=== PATIENT | male | born 1955 | race Caucasian/White ===

== ENCOUNTER → 2018-08-15 09:36 | Outpatient (CLI) | payer OTHER, SELFPAY ==
[2013-07-28 09:21] VITALS: BMI 24.5
[2018-08-15 12:55] LABS: Anion Gap 5 (5-15); BUN 15 mg/dL (7-18); BUN/Creat Ratio 18.4 RATIO (10-20); Calcium,Total 8.6 mg/dL (8.5-10.1); Chloride 107 mmol/L (98-107); Cholesterol 157 mg/dL (200); Creatinine, Serum 0.82 mg/dL (0.70-1.30); EST Glomerular Filtration Rate 101 mL/min (>60); Est Glom Filt Rate - Afr Amer 122 mL/min (>60); Glucose 92 mg/dL (74-106); High Density Lipoprotein 61 mg/dL; PSA,Total - Annual Screen 1.04 ng/mL (0.00-4.00); Potassium 4.1 mmol/L (3.5-5.1); Sodium Level 139 mmol/L (136-145); Triglycerides 50 mg/dL; Very Low Density Lipoprotein 10 mg/dL (5-40)
== END ==
PROVIDERS: Visit Provider Family Medicine
DX: G25.0 Essential tremor (principal); Z13.220 Encounter for screening for lipoid disorders; Z12.5 Encounter for screening for malignant neoplasm of prostate
CPT/HCPCS: 36415; 80048; 80061; 84153; G0103

== ENCOUNTER → 2020-04-05 15:24 | Outpatient (CLI) | payer OTHER, SELFPAY ==
[2013-07-28 09:21] VITALS: BMI 24.5
[2020-04-05 18:41] LABS: T4 Free Direct 1.13 ng/dL (0.76-1.46); Thyroid Stim Hormone (TSH) 1.47 uIU/mL (0.358-3.74)
== END ==
PROVIDERS: PCP Family Medicine; Referring Provider Family Medicine; Visit Provider Family Medicine
DX: E04.1 Nontoxic single thyroid nodule (principal)
CPT/HCPCS: 36415; 84439; 84443

== ENCOUNTER → 2020-04-15 08:03 | Outpatient (CLI) | payer OTHER, SELFPAY ==
--- NOTE | 2020-04-15 08:06 | US_ITS ---
STUDY: THYROID ULTRASOUND REASON FOR EXAM: Male, 64 years old. NODULE FELT BY DOCTOR TECHNIQUE: Ultrasound evaluation of the thyroid was performed with real-time and static rodriguez-scale imaging. COMPARISON: None. FINDINGS: RIGHT LOBE: The right lobe of the thyroid gland measures 5.3 x 1.7 x 1.7 cm. There is a homogeneous echotexture. There are no demonstrated solid, cystic or complex lesions. LEFT LOBE: The left lobe of the thyroid gland measures 5.3 x 1.8 x 1.4 cm. There is a homogeneous echotexture. There are no demonstrated solid, cystic or complex lesions. ISTHMUS: The isthmus measures 2 mm . The regional lymph nodes are normal. US/Thyroid IMPRESSION: Normal ultrasound examination of the thyroid. Electronically Signed: Chiki Isaacs MD at 20:30 EDT , Service support ,
== END ==
PROVIDERS: PCP Family Medicine; Referring Provider Family Medicine; Visit Provider Family Medicine
DX: E04.1 Nontoxic single thyroid nodule (principal)
CPT/HCPCS: 76536

== ENCOUNTER → 2022-11-06 | Outpatient (CLI) | payer OTHER, SELFPAY ==
[2022-11-06 15:37] LABS: Absolute Lymphocyte Count 1.66 X10^3/uL (0.83-4.51); Absolute Neutrophil Count 5.3 X10^3/uL (2.0-7.7); Basophil# 0.04 X10^3/uL; Basophil% 0.5 % (0-1); Eosinophil# 0.19 X10^3/uL; Eosinophils% 2.5 % (0-5); Hematocrit 45.1 % (40-54); Hemoglobin 14.4 g/dL (13.0-16.5); Lymphocyte # 1.66 X10^3/ul (0.83-4.51); Lymphocyte % 21.4 % (19-41); Mean Corp Hgb Conc 31.9 g/dL (32-36); Mean Corpuscular Hgb 30.8 pg (27.0-32.0); Mean Corpuscular Volume 96.6 fL (80-94); Mean Platelet Vol. 10.5 fl (6.2-12.0); Monocyte# 0.55 X10^3/uL; Monocyte% 7.1 % (0-10); NRBC Flagged by Analyzer 0 % (0-5); Neutrophil # 5.28 X10^3/uL (2.7-7.7); Neutrophil % 68.2 % (47-70); Platelet Count 313 K/mm3 (150-450); RBC Distribution Width CV 12.8 % (11.6-14.6); RBC Distribution Width SD 45.5 fl (35.1-43.9); Red Blood Count 4.67 M/mm3 (4.6-6.2); White Blood Count 7.7 K/mm3 (4.4-11.0)
[2022-11-06 16:03] LABS: ALB/GLOB Ratio 1.4 RATIO (0.9-2.4); AST(SGOT) 30 U/L (15-37); Alanine Aminotransfer ALT/SGPT 35 U/L (16-61); Albumin, Serum 3.9 g/dL (3.2-5.0); Alkaline Phosphatase 71 U/L (45-117); Anion Gap 3 (5-15); BUN 16 mg/dL (7-18); BUN/Creat Ratio 24.7 RATIO (10-20); Chloride 106 mmol/L (98-107); Cholesterol 169 mg/dL (200); Creatinine, Serum 0.65 mg/dL (0.70-1.30); EST Glomerular Filtration Rate 130 mL/min (>60); Est Glom Filt Rate - Afr Amer 158 mL/min (>60); Globulin 2.7 g/dL (2.2-4.2); Glucose 93 mg/dL (74-106); High Density Lipoprotein 72 mg/dL; PSA,Total - Annual Screen 1.66 ng/mL (0.00-4.00); Potassium 4.2 mmol/L (3.5-5.1); Protein, Total 6.6 g/dL (6.4-8.2); Sodium Level 139 mmol/L (136-145); Thyroid Stim Hormone (TSH) 2.13 uIU/mL (0.358-3.74); Triglycerides 113 mg/dL; Very Low Density Lipoprotein 23 mg/dL (5-40)
== END | disposition home or self-care (01) ==
LOC: MFPLAB 11:40
PROVIDERS: PCP Family Medicine; Visit Provider Family Medicine
DX: Z00.00 Encounter for general adult medical examination without abnormal findings (principal); Z12.5 Encounter for screening for malignant neoplasm of prostate
CPT/HCPCS: 36415; 80053; 80061; 84153; 84443; 85025; G0103

== ENCOUNTER 2023-05-09 19:50 | Observation (INO) | payer OTHER, SELFPAY ==
[2023-05-09 19:52] VITALS: BP 138/88; PULSE 50; RESP 16; TEMP 36.1; O2SAT 99; BMI 26.0
--- NOTE | 2023-05-09 19:58 | CT_ITS ---
We are attempting to reach an attending provider to discuss findings. An addendum with communication details will be sent when the communication is complete. INDICATION: Neuro deficit, acute, stroke suspected EXAMINATION: CT BRAIN - CT Head Stroke Protocol W/O Contrast Injection TECHNIQUE: Multiple axial images were obtained of the head without intravenous contrast. A radiation dose optimization technique was used for this scan. IV Contrast dosage and agent: None. COMPARISON: None FINDINGS: BRAIN PARENCHYMA: No intra- or extra-axial hemorrhage. No evidence of acute infarct. No intracranial mass or mass effect. There is preservation of the rodriguez/white matter interface. Posterior fossa structures are unremarkable. Probably left basal ganglia mineralization. No dense MCA sign. CSF SPACES: Appropriate for age. No hydrocephalus. Basal cisterns are patent. CALVARIUM, SKULL BASE, PARANASAL SINUSES AND MASTOID AIR CELLS: Right maxillary sinus mucous retention cyst versus polyp. No discrete lytic or blastic abnormalities. ORBITS: Both globes, extraocular muscles, optic nerves and retrobulbar fat appear unremarkable. ASPECTS Score for Acute Strokes: 10 CT/STROKE Brain/Head without Cont IMPRESSION: No acute intracranial hemorrhage or definite focal ischemia by CT. Electronically Signed: Brandon Cooley MD at 20:13 EDT ,
--- NOTE | 2023-05-09 19:58 | EKG12_ITS ---
Test Reason : STROKE Blood Pressure : / mmHG Vent. Rate : 054 BPM Atrial Rate : 054 BPM P-R Int : 170 ms QRS Dur : 158 ms QT Int : 458 ms P-R-T Axes : 063 003 022 degrees QTc Int : 434 ms Sinus bradycardia Right bundle branch block Abnormal ECG Confirmed by PADMINI GALINDO, LAYTON ([id number]), video tape editor PRESTON ZACARIAS ([id number]) on 05/11/2023 11:56:58 AM Referred By: Confirmed By:LAYTON WASHINGTON MD
--- NOTE | 2023-05-09 19:59 | CT_ITS ---
INDICATION: Neuro deficit, acute, stroke suspected EXAMINATION: CTA head and neck with contrast. TECHNIQUE: Noncontrast axial images were obtained of the brain. Subsequently, routine carotid CT angiogram protocol was performed without and with IV contrast. In addition, images were obtained of the [place]. NASCET criteria using the distal ICAs for comparison were used for evaluation of stenoses. Maximum intensity projection reconstructions were reviewed. A radiation dose optimization technique was used for this scan. IV Contrast dosage and agent: 100 cc [id number] COMPARISON: None. FINDINGS: --CTA NECK: AORTIC ARCH AND BRANCHES: Normal anatomy, patent. Minimal atherosclerosis at the aortic arch. RIGHT CCA: No occlusion, significant stenosis or dissection. RIGHT ICA: No occlusion, significant stenosis or dissection. LEFT CCA: No occlusion, significant stenosis or dissection. LEFT ICA: No occlusion, significant stenosis or dissection. RIGHT VERTEBRAL ARTERY: No occlusion, significant stenosis or dissection. LEFT VERTEBRAL ARTERY: No occlusion, significant stenosis or dissection. NECK SOFT TISSUES: No significant abnormality. There are some scattered cervical nodes bilaterally which do not meet pathologic size criteria. Mild cervical spine degenerative change with discal narrowing C4-C6. Slight retrolisthesis of C4 on C5 and C5 on C6 which does contribute some bilateral bony foraminal narrowing and spinal canal narrowing. --CTA HEAD: --Anterior circulation: ICAs: No significant stenosis at the intracranial/visualized segments. ACAs: No significant stenosis at the visualized segments. ACOM: Present. MCAs: No significant stenosis at the visualized segments. --Posterior circulation: PCOMs: Not well seen. 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 No significant stenosis at the visualized segments. BASILAR ARTERY: No significant stenosis. VERTEBRAL ARTERIES: No significant stenosis at the intradural/visualized segments. No evidence of intracranial aneurysm or vascular malformation. IMPRESSION No hemodynamically significant ICA stenosis. No significant carotid atherosclerotic disease. No large vessel occlusion. No intracranial stenosis or aneurysmal dilatation. D/W Dr. Ross CampbellBLudwig : The above Results were Read Back by Brandon Cooley MD to Devyn Hawkins MD, and understanding confirmed on 05/09/2023 20:35:51 (ET). Electronically Signed: Brandon Cooley MD at 20:37 EDT , CT/STROKE CTA Head AND Neck W/Con IMPRESSION: undefined
--- NOTE | 2023-05-09 19:59 | ED.VIS.STROK ---
HPI History of Present Illness Chief Complaint: Headache Detail of Chief Complaint: Headache with problems speaking Informant: patient and spouse/S.O. 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 who presents because of abrupt onset of headache with trouble speaking this evening. He had problems with fluency. This started at 1914. There is no family history of subarachnoid hemorrhage or cerebral aneurysm. On Wednesday while at work he had trouble reading things for approximately 1 and 1 hour. He denies history of hypertension, hypercholesterolemia or smoking. He is headache is occipital. He denies problems with balance or coordination. He denies ringing's ears or decreased hearing. He denies double vision, blurred vision or loss of vision. He denies neck pain. He denies paresthesia, anesthesia or motor his upper or lower extremity. Prior similar symptoms: No Recent Illness/Hospitalization: No PFSH PFSH Medical History (Updated 05/09/23 @ 20:[address] Devyn Hawkins MD) ADD (attention deficit disorder) Essential tremor Medical History no medical history no medical history Home Medications dextroamphetamine-amphetamine 10 mg tablet 1 tab PO PRN PRN attention 07/28/13 [History Last Taken Unknown] oxycodone-acetaminophen 5 mg-325 mg tablet 1 tab PO Q4H PRN PRN Pain ##30 07/28/13 [Rx Last Taken Unknown] propranolol 20 mg tablet 20 mg PO BID PRN PRN temor 07/28/13 [History Last Taken Unknown] Allergy/AdvReac Type Severity Reaction Status Date / Time ibuprofen Allergy Other Verified 05/09/23 19:55 oxycodone [Oxycodone] AdvReac Nausea Verified 05/09/23 19:55 Social History (Updated 05/09/23 @ 20:[address] Devyn Hawkins MD) household members: spouse Smoking Status: Never smoker ROS ROS ED Constitutional Constitutional ED: Denies chills, fever(s) or subjective Eyes Eyes: Denies blurry vision, change in vision or diplopia ENT ENT ED: Denies ear pain, rhinorrhea or sore throat Cardiovascular Cardiovascular: Denies chest pain, palpitations, paroxysmal nocturnal dyspnea or racing heartbeat Respiratory/Chest Respiratory/Chest: Denies cough, dyspnea, dyspnea on exertion or paroxysmal nocturnal dyspnea Gastrointestinal Gastrointestinal: Reports nausea; Denies abdominal pain, constipation, diarrhea, melena or vomiting Genitourinary Genitourinary ED: Denies dysuria, hematuria or urinary frequency Musculoskeletal Musculoskeletal: Denies arthralgias, back pain, myalgias or neck pain Integumentary Denies rash Neurologic Neurologic: Reports headache(s); Denies paresthesias or weakness Hematologic/Lymphatic Hematologic/Lymphatic: Denies easy bleeding or easy bruising EXAM Physical Exam Const Vital Signs: 05/09/23 19:52 05/09/23 20:13 05/09/23 20:28 Temperature 96.9 F L Temperature Source Temporal Pulse Rate 50 L 55 L Respiratory Rate 16 19 H Blood Pressure 138/88 H 118/83 H Blood Pressure Mean 104 94 Pulse Ox 99 97 Oxygen Delivery Method Room Air Room Air Positive well nourished and well developed General Appearance ED: well developed and NAD HEENT Reports moist mucous membranes Nose: other Other Details: Nares unremarkable. Posterior pharynx unremarkable. There is no deviation with protrusion. Eyes PERRL and EOMs intact bilaterally Eyes Narrative: There is no nystagmus. There is no visual field cut. General Eye ED: Negative for pale conjunctiva or scleral icterus Neck no lymphadenopathy, supple and no JVD Neck Narrative: There is no meningeal findings. Resp normal respiratory effort and clear to auscultation bilaterally Cardio no murmurs Rate: bradycardia Rhythm: regular rhythm Heart Sounds: S1 normal and S2 normal GI normal to inspection, nondistended, normoactive bowel sounds, soft to palpation, non-tender, non-distended and no masses Back/Spine no CVA tenderness Cervical Spine: Negative for cervical spine tenderness Thoracic Spine / Upper Back: Negative for thoracic spinal tenderness Lumbar Spine / Lower Back: Negative for lumbar spinal tenderness Extremity normal to inspection Neuro oriented x3, CN's II-XII intact bilaterally and no sensory deficits noted Beto Coma Scale: document GCS findings Spontaneous Obeys Commands Oriented 15 Sensorium / Orientation: alert Speech: Negative for speech normal Gait (Neuro): normal gait Motor Exam: strength 5/5 throughout Psych mental status grossly normal Psych Narrative: Affect is flat. Skin no wounds General Skin Exam: Negative for jaundice Lesions: no lesions Rashes: no rashes NIHSS NIHSS Initial: 1a Level of Consciousness: 0 1b LOC Questions (Score 2 if aphasic/stupor): 0 1c LOC Commands (Only score 1st attempt): 0 2 Best Gaze (If aphasic, use reflexive mvmts.): 0 3 Visual: 0 4 Facial Palsy: 0 5 Motor Arm Right (UN = amputation/fusion): 0 5 Motor Arm Left: 0 6 Motor Leg Right: 0 6 Motor Leg Left: 0 7 Limb ataxia (Only + if out of proportion): 0 8 Sensory (Aphasia/stupor=0 or 1, coma=2): 0 9 Best Language: 0 10 Dysarthria (mute, coma=2, intubated=UN): 0 11 Extinction and Inattention (only scored if +): 0 Total Score: 0 MDM MDM MDM Narrative Medical decision making narrative: Patient had a episode of aphasia on Wednesday with inability to comprehend words that he read. Tonight he and his noted he was having trouble speaking with fluency. His symptoms on Wednesday lasted 1 hour and his symptoms today lasted 45 minutes. Patient is having stuttering TIA. Will obtain CT to assess for hemorrhage because he reported abrupt onset of severe headache that started at 1915 and specifically subarachnoid hemorrhage. Also need to do consider possibility of a hemorrhagic conversion of a small stroke. CTA was obtained to see if there is any significant stenotic lesions that may require intervention. Appropriate blood work was ordered. Stroke team was called. Since patient's NIH presently is 0 he will not qualify for thrombolytics. Lab Data Attestation: I reviewed the patient's lab results. Lab results narrative: CBC is normal. Coags normal. Basic metabolic panel is unremarkable. BUN to creatinine ratio is elevated 2091. Chloride slightly elevated 109. Troponin is normal. Labs: Laboratory Results - last 24 hr 05/09/23 19:58 WBC 6.8 RBC 4.79 Hgb 14.7 Hct 45.6 MCV 95.2 H MCH 30.7 MCHC 32.2 RDW Std Deviation 45.3 H RDW Coeff of Papi 12.8 Plt Count 317 MPV 9.7 Immature Gran % (Auto) 0.300 Neut % (Auto) 58.3 Lymph % (Auto) 27.5 [place] % (Auto) 8.5 Eos % (Auto) 5.0 Baso % (Auto) 0.4 Absolute Neuts (auto) 4.0 Absolute Lymphs (auto) 1.87 Nucleated RBC % 0 PT 12.5 INR 0.9 APTT 27.9 Sodium 140 Potassium 3.8 Chloride 109 H Carbon Dioxide 27.0 Anion Gap 4 L BUN 22 H Creatinine 0.76 Estim Creat Clear Calc 76.52 Est GFR (MDRD) Af Amer 131 Est GFR (MDRD) Non-Af 108 BUN/Creatinine Ratio 29.0 H Glucose 100 Calcium 8.8 Troponin I High Sens 17 Radiography Diagnostic Testing: Clinical Impression(s) from Imaging Studies Brain CT 05/09/23 19:58 IMPRESSION: No acute intracranial hemorrhage or definite focal ischemia by CT. Electronically Signed: Brandon Cooley MD at 20:13 EDT , ADDENDUM: 05/09/232020 IMPRESSION: No acute intracranial hemorrhage or definite focal ischemia by CT. N.B. : The above Results were Read Back by Brandon Cooley MD to Devyn Hawkins MD, and understanding confirmed on 05/09/2023 20:14:52 (ET). Electronically Signed: Brandon Cooley MD at 20:13 EDT , Head/Neck CTA 05/09/23 19:59 IMPRESSION: undefined EKG Initial EKG: Attestation: I personally reviewed and interpreted this EKG as follows: Interpretation: Sinus Bradycardia (Rate is 50. There is gross changes consistent with right bundle branch block. CT interval 270 ms. QRS duration 158 ms. QT duration 458 ms.) Management Discussion w/another healthcare provider: Hospitalist, Database Security Administrator ([facility] neurologist recommends admission MRI) and Radiologist (I received phone call from radiologist at 2013. CT without contrast reveals no acute abnormality.) Stroke Documentation Questions Stroke Team Activated: Yes Reviewed Inclusion/Exclusion criteria: Yes No contraindications from thrombolytic administration: No (NIH 0 and symptoms have resolved) Discharge Plan Dx/Rx/DC Orders Clinical Impression: Aphasia, Bradycardia, sinus, Right bundle branch block Disposition Disposition: Acute Care Hospital [facility]
--- NOTE | 2023-05-09 20:02 | ED.RN ---
Pt present to triage with complaints of headache. While triaging he gives events of possible mini stroke Wednesday. Information is then added of trouble focusing. Denies trouble with balance, vision, weakness or speaking. then adds that his speech was slurred when he said his headache started. Immediately taken to a room, gas charger notified of possible stroke alert.
[2023-05-09 20:07] LABS: Absolute Lymphocyte Count 1.87 X10^3/uL (0.83-4.51); Basophil# 0.03 X10^3/uL; Basophil% 0.4 % (0-1); Eosinophil# 0.34 X10^3/uL; Hematocrit 45.6 % (40-54); Hemoglobin 14.7 g/dL (13.0-16.5); Lymphocyte # 1.87 X10^3/ul (0.83-4.51); Lymphocyte % 27.5 % (19-41); Mean Corp Hgb Conc 32.2 g/dL (32-36); Mean Corpuscular Hgb 30.7 pg (27.0-32.0); Mean Corpuscular Volume 95.2 fL (80-94); Mean Platelet Vol. 9.7 fl (6.2-12.0); Monocyte# 0.58 X10^3/uL; Monocyte% 8.5 % (0-10); NRBC Flagged by Analyzer 0 % (0-5); Neutrophil # 3.96 X10^3/uL (2.7-7.7); Neutrophil % 58.3 % (47-70); Platelet Count 317 K/mm3 (150-450); RBC Distribution Width CV 12.8 % (11.6-14.6); RBC Distribution Width SD 45.3 fl (35.1-43.9); Red Blood Count 4.79 M/mm3 (4.6-6.2); White Blood Count 6.8 K/mm3 (4.4-11.0)
[2023-05-09 20:23] LABS: International Normalized Ratio 0.9; Prothrombin Time (Protime)PT. 12.5 SECONDS (11.7-14.9)
[2023-05-09 20:24] LABS: Partial Thromboplast Time 27.9 Seconds (24.1-36.2)
[2023-05-09 20:26] LABS: Anion Gap 4 (5-15); BUN 22 mg/dL (7-18); Calcium,Total 8.8 mg/dL (8.5-10.1); Chloride 109 mmol/L (98-107); Creatinine, Serum 0.76 mg/dL (0.70-1.30); EST Glomerular Filtration Rate 108 mL/min (>60); Est Glom Filt Rate - Afr Amer 131 mL/min (>60); Estimated Creatinine Clearance 76.52 ml/min; Glucose 100 mg/dL (74-106); Potassium 3.8 mmol/L (3.5-5.1); Sodium Level 140 mmol/L (136-145); Troponin-I HS 17 pg/mL (3.0-78.0)
[2023-05-09 20:28] VITALS: BP 118/83; PULSE 55; RESP 19; O2SAT 97
--- NOTE | 2023-05-09 20:37 | RAD_ITS ---
INDICATION: Neuro deficit, acute, stroke suspected EXAMINATION/TECHNIQUE: X-RAY - XR Chest 1 View COMPARISON: None. FINDINGS: Cardiac silhouette and mediastinal contours are within normal limits. There is no focal airspace consolidation or pleural effusion. Mild degenerative changes of the shoulders and spine are present. The patient does have a linear radiopaque density projecting over the mid chest at the level of T7. There are a few of punctate radiodensities projecting at the right axillary region. RAD/Chest 1 View IMPRESSION: Clear lungs. Linear density as above as well as some densities projecting over the right axillary region. These are of unclear significance. Consider lateral view if patient able. Electronically Signed: Brandon Cooley MD at 20:50 EDT ,
[2023-05-09 20:58] VITALS: BP 121/84; PULSE 66; RESP 16; O2SAT 99
--- NOTE | 2023-05-09 21:26 | PCM.HP.STD ---
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 On the day before presentation patient had difficulty understanding written words on his computer. Words were jumbled together. On the day of presentation patient had headache, was confused, and had difficulty interpreting things he saw. On the day of presentation symptoms started about 3 hours before presentation and it lasted for at least an hour. At the emergency department patient's symptoms had resolved. [facility] Medical History ADD (attention deficit disorder) Essential tremor Medical History no medical history Home Medications propranolol 20 mg tablet 20 mg PO BID PRN PRN temor 07/28/13 [History Last Taken Unknown] Allergy/AdvReac Type Severity Reaction Status Date / Time ibuprofen Allergy Other Verified 05/09/23 19:55 oxycodone [Oxycodone] AdvReac Nausea Verified 05/09/23 19:55 tramadol AdvReac Other Verified 05/09/23 22:37 Family History Other Pancreatic cancer Surgical History History of appendectomy Social History household members: spouse Smoking Status: Never smoker ROS ROS Narrative Pertinent positives and pertinent negatives as noted in HPI. All other systems were reviewed and are negative Vital Signs Vital Signs Vital Signs: 05/09/23 19:52 05/09/23 20:13 05/09/23 20:28 Temperature 96.9 F L Temperature Source Temporal Pulse Rate 50 L 55 L Respiratory Rate 16 19 H Blood Pressure 138/88 H 118/83 H Blood Pressure Mean 104 94 Pulse Ox 99 97 Oxygen Delivery Method Room Air Room Air Weight Weight: 87.09 kg Body Mass Index (BMI) 26.0 Physical Exam Narrative Physical exam: General: Well-nourished, well-developed. Head: Normocephalic, atraumatic, no tenderness Eyes: Vision is grossly intact. EOMI ENT, no trauma, moist mucous membranes, no rhinorrhea Neck: Nontender, No thyromegaly. CVS: Regular rate and rhythm. S1-S2 present. No murmur, gallop or rub. Respiratory : clear to auscultation bilaterally, chest wall nontender Abdomen: Soft, nontender, nondistended, normal bowel sounds, no masses : Deferred Back: Nontender, no CVA tenderness, Extremities: Nontender full range of motion, no trauma Skin: Normal color, no trauma, abrasions Neuro: Alert, oriented, cranial nerves II through XII grossly intact. Note hyperreflexia with deep tendon reflexes of the knee and elbow. No sensation changes. Noted to have tremors at rest. No dysmetria with [id number] test or rodriguez to heel test. Psychiatry: Normal mood. Normal affect. Not depressed. Not anxious. Results Lab / Micro Data 05/09/23 19:58 05/09/23 19:58 Labs: Laboratory Results - last 24 hr 05/09/23 19:58: WBC 6.8, RBC 4.79, Hgb 14.7, Hct 45.6, MCV 95.2 H, MCH 30.7, MCHC 32.2, RDW Std Deviation 45.3 H, RDW Coeff of Papi 12.8, Plt Count 317, MPV 9.7, Immature Gran % (Auto) 0.300, Neut % (Auto) 58.3, Lymph % (Auto) 27.5, [place] % (Auto) 8.5, Eos % (Auto) 5.0, Baso % (Auto) 0.4, Absolute Neuts (auto) 4.0, Absolute Lymphs (auto) 1.87, Nucleated RBC % 0, PT 12.5, INR 0.9, APTT 27.9, Sodium 140, Potassium 3.8, Chloride 109 H, Carbon Dioxide 27.0, Anion Gap 4 L, BUN 22 H, Creatinine 0.76, Estim Creat Clear Calc 76.52, Est GFR (MDRD) Af Amer 131, Est GFR (MDRD) Non-Af 108, BUN/Creatinine Ratio 29.0 H, Glucose 100, Calcium 8.8, Troponin I High Sens [address] 05/09/23 19:58 IMPRESSION: No acute intracranial hemorrhage or definite focal ischemia by CT. Electronically Signed: Brandon Cooley MD at 20:13 EDT , ADDENDUM: 05/09/232020 IMPRESSION: No acute intracranial hemorrhage or definite focal ischemia by CT. N.B. : The above Results were Read Back by Brandon Cooley MD to Devyn Hawkins MD, and understanding confirmed on 05/09/2023 20:14:52 (ET). Electronically Signed: Brandon Cooley MD at 20:13 EDT , Head/Neck CTA 05/09/23 19:59 IMPRESSION: undefined ADDENDUM: 05/09/232043 IMPRESSION: undefined Chest X-Ray 05/09/23 20:37 IMPRESSION: Clear lungs. Linear density as above as well as some densities projecting over the right axillary region. These are of unclear significance. Consider lateral view if patient able. Electronically Signed: Brandon Cooley MD at 20:50 EDT , Assessment & Plan Assessment/Plan (1) Stroke-like symptoms: (2) Aphasia: (3) Bradycardia, sinus: PLAN: Plan Strokelike symptoms Serial NINDS NIH Scale ordered Impression of head CT by radiology: No acute intracranial hemorrhage or definite focal ischemia by CT. Upon my personal head CT image independent interpretation: I agree with radiologist interpretation Lipid profile and A1c ordered. Physical therapy, occupational therapy and speech therapy to work with patient. N.p.o. until bedside swallow eval. Daily aspirin ordered. High intensity statin ordered. Permissive hypertension. Control blood pressure with labetalol for systolic blood pressure of more than 220 or diastolic blood pressure of more than 120. Consideration was made to hold patient's propranolol as needed. However with patient's debilitating tremors propranolol will be continued. MRI brain ordered. Echocardiogram ordered Bradycardia Secondary to patient being on propranolol and being an avid cyclist. No intervention at this time. DVT prophylaxis: SCD ordered. Time spent in the patient's overall evaluation,decision-making process, review of diagnostic data, adjustment of management, discussion with other providers, nursing and ancillary staff involved in patient's care documentation, 45 minutes. Charges/Coding Visit Charges Inpatient E&M: 51574 Init Hosp L2
[2023-05-09 21:28] VITALS: BP 118/83; PULSE 54; RESP 15; O2SAT 99
[2023-05-09 21:35] VITALS: BP 118/91; PULSE 55; RESP 15; O2SAT 98
--- NOTE | 2023-05-09 21:38 | ED.RN ---
PER EVELIA MORA TO END [facility] ASSESSMENTS
--- NOTE | 2023-05-09 22:24 | ECHOD_ITS ---
Version 2 Reason For Study: TIA/CVA Procedure This was a 2D Doppler, Color Flow transthoracic echocardiogram. Exam performed portable in patient room. Left Ventricle Normal left ventricle. Left ventricular systolic function is normal. The estimated ejection fraction is 55 %. No regional wall motion abnormalities noted. Right Ventricle Normal RV size. Normal systolic function. Atria Normal left atrium. Normal right atrium. Bubble contrast study negative for right to left interatrial shunt. Mitral Valve There is mild to moderate mitral annular calcification. Tricuspid Valve Normal tricuspid valve. Trivial tricuspid valve insufficiency. Aortic Valve Trisinus/trileaflet aortic valve. Pulmonic Valve Normal pulmonic valve. Great Vessels Normal aortic root. The pulmonary artery is normal size. Normal inferior vena cava. Pericardium/Pleural No pericardial effusion. Medication Performed a rapid injection of agitated mix of 9 cc saline and 1cc air to assess for atrial septal defect. MMode/2D Measurements & Calculations LVIDd: 5.8 cm IVSd: 0.87 cm Ao root diam: 3.2 cm LVIDs: 3.6 cm LVPWd: 0.63 cm LA dimension: 4.0 cm RVDd: 4.5 cm FS: 38.0 % LAV(MOD-bp): 65.8 ml LA A4 area: 21.8 cm2 RA A4 area: 21.6 cm2 LAV(MOD-bp) Indexed: 31.8 ml/m2 LAV(MOD-sp2): 67.8 ml LAV(MOD-sp4): 57.4 ml TAPSE: 1.8 cm Time Measurements MV dec time: 0.25 sec Doppler Measurements & Calculations MV E max roberto: 93.8 cm/sec Lat Peak E' Roberto: 13.0 cm/sec Med Peak E' Roberto: 8.3 cm/sec MV A max roberto: 91.8 cm/sec E/E' lat: 7.2 E/E' med: 11.3 MV E/A: 1.0 MV V2 max: 107.6 cm/sec MV P1/2t max roberto: 109.2 cm/sec Ao V2 max: 122.4 cm/sec MV max P.6 mmHg MV P1/2t: 90.1 msec Ao max P.0 mmHg MV V2 mean: 49.0 cm/sec MV dec slope: 354.9 cm/sec2 Ao V2 mean: 84.9 cm/sec MV mean P.3 mmHg MVA(P1/2t): 2.4 cm2 Ao mean P.3 mmHg MV V2 VTI: 46.1 cm Ao V2 VTI: 29.9 cm AV (velocity ratio): 1.1 LV V1 max: 139.5 cm/sec PA V2 max: 66.3 cm/sec TR max roberto: 219.3 cm/sec LV V1 max P.8 mmHg TR max P.2 mmHg LV V1 mean P.9 mmHg LV V1 mean: 92.2 cm/sec LV V1 VTI: 32.4 cm ECHO/Echo Complete Interpretation Summary Normal left ventricle. Left ventricular systolic function is normal. The estimated ejection fraction is 55 %. Bubble contrast study negative for right to left interatrial shunt. There is mild to moderate mitral annular calcification. Ordering Physician: Claude Jones Performed By: Sukumar Mccormack RCS
[2023-05-09 22:25] VITALS: BMI 25.4
[2023-05-09 22:32] VITALS: BP 135/83; PULSE 55; RESP 18; TEMP 36.4; O2SAT 100
[2023-05-09 22:47] LABS: Bedside Glucose 145 mg/dL (74-106)
[2023-05-09] MEDS: Atorvastatin Calcium 80 MG Tablet PO (22:56)
[2023-05-10 01:00] VITALS: BMI 25.4
[2023-05-10 02:45] VITALS: BP 124/74; PULSE 47; RESP 16; TEMP 36.4; O2SAT 97
[2023-05-10 03:05] VITALS: O2SAT 97
[2023-05-10 06:00] VITALS: BP 119/80; PULSE 48; RESP 18; TEMP 36.1; O2SAT 98
[2023-05-10 06:08] LABS: Absolute Lymphocyte Count 1.87 X10^3/uL (0.83-4.51); Absolute Neutrophil Count 3.6 X10^3/uL (2.0-7.7); Basophil# 0.04 X10^3/uL; Basophil% 0.6 % (0-1); Eosinophil# 0.31 X10^3/uL; Eosinophils% 4.9 % (0-5); Hematocrit 42.1 % (40-54); Hemoglobin 13.8 g/dL (13.0-16.5); Lymphocyte # 1.87 X10^3/ul (0.83-4.51); Lymphocyte % 29.4 % (19-41); Mean Corp Hgb Conc 32.8 g/dL (32-36); Mean Corpuscular Volume 94.6 fL (80-94); Mean Platelet Vol. 10.2 fl (6.2-12.0); Monocyte# 0.51 X10^3/uL; NRBC Flagged by Analyzer 0 % (0-5); Neutrophil % 56.8 % (47-70); Platelet Count 275 K/mm3 (150-450); RBC Distribution Width CV 12.8 % (11.6-14.6); RBC Distribution Width SD 44.3 fl (35.1-43.9); Red Blood Count 4.45 M/mm3 (4.6-6.2); White Blood Count 6.4 K/mm3 (4.4-11.0)
[2023-05-10 07:00] LABS: Anion Gap 6 (5-15); BUN 16 mg/dL (7-18); BUN/Creat Ratio 24.1 RATIO (10-20); Calcium,Total 8.7 mg/dL (8.5-10.1); Chloride 108 mmol/L (98-107); Cholesterol 146 mg/dL (200); Creatinine, Serum 0.66 mg/dL (0.70-1.30); EST Glomerular Filtration Rate 126 mL/min (>60); Est Glom Filt Rate - Afr Amer 153 mL/min (>60); Estimated Creatinine Clearance 76.52 ml/min; Glucose 94 mg/dL (74-106); High Density Lipoprotein 63 mg/dL; Potassium 3.4 mmol/L (3.5-5.1); Sodium Level 140 mmol/L (136-145); Triglycerides 75 mg/dL; Very Low Density Lipoprotein 15 mg/dL (5-40)
[2023-05-10] MEDS: Aspirin 81 MG TAB.CHEW PO (08:00)
--- NOTE | 2023-05-10 08:10 | PCM.PN.HOSP ---
Reason for Visit Reason for Visit: Diagnoses Bradycardia, unspecified (05/09/23) Unspecified symptoms and signs involving the nervous system (05/09/23) Aphasia (05/09/23) Subjective Subjective Feels well. No headache, no trouble reading. Objective Data Objective Data Vital Signs: Vital Signs Temp Pulse Resp BP Pulse Ox O2 Del Method 36.1 C L 48 L 18 119/80 98 Room Air 05/10/23 06:00 05/10/23 06:00 05/10/23 06:00 05/10/23 06:00 05/10/23 06:00 05/10/23 06:00 Oxygen Delivery Method Room Air Weight: 85.2 kg Body Mass Index (BMI) 25.4 Intake & Output: Intake and Output for Last 24 Hours 05/08/23 05/09/23 05/10/23 23:59 23:59 23:59 Intake Total 340 / 340 Balance 340 / 340 Lab / Micro Data 05/10/23 04:55 05/10/23 04:55 Labs: Laboratory Results - last 24 hr 05/09/23 19:57: POC Glucose 145 H 05/09/23 19:58: WBC 6.8, RBC 4.79, Hgb 14.7, Hct 45.6, MCV 95.2 H, MCH 30.7, MCHC 32.2, RDW Std Deviation 45.3 H, RDW Coeff of Papi 12.8, Plt Count 317, MPV 9.7, Immature Gran % (Auto) 0.300, Neut % (Auto) 58.3, Lymph % (Auto) 27.5, Montague % (Auto) 8.5, Eos % (Auto) 5.0, Baso % (Auto) 0.4, Absolute Neuts (auto) 4.0, Absolute Lymphs (auto) 1.87, Nucleated RBC % 0, PT 12.5, INR 0.9, APTT 27.9, Sodium 140, Potassium 3.8, Chloride 109 H, Carbon Dioxide 27.0, Anion Gap 4 L, BUN 22 H, Creatinine 0.76, Estim Creat Clear Calc 76.52, Est GFR (MDRD) Af Amer 131, Est GFR (MDRD) Non-Af 108, BUN/Creatinine Ratio 29.0 H, Glucose 100, Calcium 8.8, Troponin I High Sens 17 05/10/23 04:55: WBC 6.4, RBC 4.45 L, Hgb 13.8, Hct 42.1, MCV 94.6 H, MCH 31.0, MCHC 32.8, RDW Std Deviation 44.3 H, RDW Coeff of Papi 12.8, Plt Count 275, MPV 10.2, Immature Gran % (Auto) 0.300, Neut % (Auto) 56.8, Lymph % (Auto) 29.4, Montague % (Auto) 8.0, Eos % (Auto) 4.9, Baso % (Auto) 0.6, Absolute Neuts (auto) 3.6, Absolute Lymphs (auto) 1.87, Nucleated RBC % 0, Sodium 140, Potassium 3.4 L, Chloride 108 H, Carbon Dioxide 26.0, Anion Gap 6, BUN 16, Creatinine 0.66 L, Estim Creat Clear Calc 76.52, Est GFR (MDRD) Af Amer 153, Est GFR (MDRD) Non-Af 126, BUN/Creatinine Ratio 24.1 H, Glucose 94, Calcium 8.7, Triglycerides 75, Cholesterol 146, LDL Cholesterol 68, VLDL Cholesterol 15, HDL Cholesterol 63 Radiography Diagnostic Testing: Radiology Impression Brain CT 05/09/23 19:58 IMPRESSION: No acute intracranial hemorrhage or definite focal ischemia by CT. Electronically Signed: Brandon Cooley MD at 20:13 EDT , ADDENDUM: 05/09/232020 IMPRESSION: No acute intracranial hemorrhage or definite focal ischemia by CT. N.B. : The above Results were Read Back by Brandon Cooley MD to Devyn Hawkins MD, and understanding confirmed on 05/09/2023 20:14:52 (ET). Electronically Signed: Brandon Cooley MD at 20:13 EDT , Head/Neck CTA 05/09/23 19:59 IMPRESSION: undefined ADDENDUM: 05/09/232043 IMPRESSION: undefined Chest X-Ray 05/09/23 20:37 IMPRESSION: Clear lungs. Linear density as above as well as some densities projecting over the right axillary region. These are of unclear significance. Consider lateral view if patient able. Electronically Signed: Brandon Cooley MD at 20:50 EDT , Physical Exam Const alert and no apparent distress HEENT head/scalp atraumatic and moist oral mucous membranes Eyes PERRL and EOMs intact bilaterally Assessment & Plan Assessment/Plan (1) Aphasia: PLAN: Receptive aphasia, could not decipher what on the screen. Head CT, CTA head and neck unremarkable MRI negative echo negative Continue ASA. FLP is good. No need for statin. [facility] neurology who recommends EEG to rule out focal seizure. (2) Bradycardia, sinus: PLAN: 2/2 propranolol having a low resting heart rate given athletiscm PLAN: Plan Essential tremor: continue propranolol. DVT prophylaxis: SCD ordered. Charges/Coding Visit Charges Inpatient E&M: 38259 Subs Hosp L2
[2023-05-10 08:15] VITALS: O2SAT 97
--- NOTE | 2023-05-10 09:00 | MRI_ITS ---
We are attempting to reach an attending provider to discuss findings. An addendum with communication details will be sent when the communication is complete. EXAM: MR HEAD WITHOUT INTRAVENOUS CONTRAST CLINICAL INDICATION: CVA TECHNIQUE: Multiplanar and multisequence MR images of the brain were obtained without intravenous contrast. COMPARISON: No relevant prior studies available. FINDINGS: BRAIN AND EXTRA-AXIAL SPACES: 5 mm focus of susceptibility artifact within the medial portion of the left globus pallidus which may represent calcification related to physiologic change. No restricted diffusion to indicate acute ischemia. Increased T2 signal intensity within the cerebral white matter suggestive of chronic microvascular change. No intra- or extra-axial hemorrhage. No intracranial mass or mass effect. Posterior fossa structures are unremarkable. Ventricles are appropriate for age. No hydrocephalus. Basal cisterns are patent. SELLA: Normal. Normal sella turcica, pituitary gland, infundibular stalk, optic chiasm and hypothalamus. AUDITORY SYSTEM: Normal. The internal auditory canals are patent. BONES/JOINTS: Intact calvarium. SINUSES: Unremarkable as visualized. Clear. MASTOID AIR CELLS: Unremarkable as visualized. Clear. ORBITS: Unremarkable as visualized. Both globes, extraocular muscles, optic nerves and retrobulbar fat appear unremarkable. VASCULATURE: Unremarkable as visualized. Normal flow voids in the major intracranial circulation. MRI/Brain without Contrast IMPRESSION: No acute intracranial abnormality. Mild chronic microvascular changes. Electronically Signed: Cesar Tenorio MD at 10:53 EDT ,
--- NOTE | 2023-05-10 10:39 | CASEMGMT ---
Social Work Pt completed PHQ-9 w/SW, scored a one, not indicating depression at this time. Pt scored a one due two symptoms related to this hospitalization. No resources needed at this time. JUDI Morales
[2023-05-10 10:40] VITALS: BP 113/77; PULSE 52; RESP 16; TEMP 36.2; O2SAT 98
[2023-05-10] MEDS: Acetaminophen 325 MG Tablet 650 MG PO (14:28)
[2023-05-10 14:43] VITALS: BMI 25.4
--- NOTE | 2023-05-10 16:39 | PCM.DC.SUM ---
Providers Date of Admission: 05/09/23 Primary Care Physician: Dr. Isaias Nicole MD Reason For Visit: TIA Diagnosis Discharge Diagnosis (1) Aphasia: Status: Acute Code(s): R47.01 - Aphasia Plan: TIA v atypical migraine v seizure. Receptive aphasia, could not decipher what on the screen. Head CT, CTA head and neck unremarkable MRI negative echo negative Continue ASA. FLP is good. No need for statin. neurology who recommends EEG to rule out focal seizure. (2) Bradycardia, sinus: Status: Acute Code(s): R00.1 - Bradycardia, unspecified Plan: 2/2 propranolol having a low resting heart rate given athletiscm Plan Essential tremor: continue propranolol. DVT prophylaxis: SCD ordered. Medications at Discharge Home Medications propranolol 20 mg tablet 20 mg PO BID PRN PRN temor 07/28/13 aspirin 81 mg chewable tablet 81 mg PO BREAKFAST #0 tabs 05/10/23 Hospital Course Operations None Procedures 2-D Echocardiogram Summary of Care Provided Minutes Spent on Discharge: 40 Hospital Course: 67-year-old male presents with 2 episodes where he was looking in a computer screen and then had difficulty deciphering what was on the screens. Happened on Wednesday and then again on Wednesday. Event on Wednesday was associated with headache but the symptoms resolved after short period of time. He did not have a headache on the Wednesday. Patient presented to the emergency room and underwent a stroke work-up. His work-up here was unremarkable. Did discuss the case with [facility] neurology. Given his negative work-up they did recommend an EEG. Patient has never had a seizure before. Recommend patient follow-up with neurology as outpatient. Patient cholesterol and LDL are good. His LDL is less than 70 so no statins. Patient will be on aspirin. Patient started to follow-up with neurology for additional evaluation and possible testing. Patient advised to return if he does have recurrent symptoms. Weight / BMI Weight Weight: 85.2 kg Body Mass Index (BMI) 25.4 ABG / Lab / Microbiology Data 05/10/23 04:55 05/10/23 04:55 Laboratory: Laboratory Results - last 24 hr 05/09/23 19:57: POC Glucose 145 H 05/09/23 19:58: WBC 6.8, RBC 4.79, Hgb 14.7, Hct 45.6, MCV 95.2 H, MCH 30.7, MCHC 32.2, RDW Std Deviation 45.3 H, RDW Coeff of Papi 12.8, Plt Count 317, MPV 9.7, Immature Gran % (Auto) 0.300, Neut % (Auto) 58.3, Lymph % (Auto) 27.5, Dickenson % (Auto) 8.5, Eos % (Auto) 5.0, Baso % (Auto) 0.4, Absolute Neuts (auto) 4.0, Absolute Lymphs (auto) 1.87, Nucleated RBC % 0, PT 12.5, INR 0.9, APTT 27.9, Sodium 140, Potassium 3.8, Chloride 109 H, Carbon Dioxide 27.0, Anion Gap 4 L, BUN 22 H, Creatinine 0.76, Estim Creat Clear Calc 76.52, Est GFR (MDRD) Af Amer 131, Est GFR (MDRD) Non-Af 108, BUN/Creatinine Ratio 29.0 H, Glucose 100, Calcium 8.8, Troponin I High Sens 17 05/10/23 04:55: WBC 6.4, RBC 4.45 L, Hgb 13.8, Hct 42.1, MCV 94.6 H, MCH 31.0, MCHC 32.8, RDW Std Deviation 44.3 H, RDW Coeff of Papi 12.8, Plt Count 275, MPV 10.2, Immature Gran % (Auto) 0.300, Neut % (Auto) 56.8, Lymph % (Auto) 29.4, Dickenson % (Auto) 8.0, Eos % (Auto) 4.9, Baso % (Auto) 0.6, Absolute Neuts (auto) 3.6, Absolute Lymphs (auto) 1.87, Nucleated RBC % 0, Sodium 140, Potassium 3.4 L, Chloride 108 H, Carbon Dioxide 26.0, Anion Gap 6, BUN 16, Creatinine 0.66 L, Estim Creat Clear Calc 76.52, Est GFR (MDRD) Af Amer 153, Est GFR (MDRD) Non-Af 126, BUN/Creatinine Ratio 24.1 H, Glucose 94, Calcium 8.7, Triglycerides 75, Cholesterol 146, LDL Cholesterol 68, VLDL Cholesterol 15, HDL Cholesterol 63 Radiography Diagnostic Testing: Radiology Impression Brain CT 05/09/23 19:58 IMPRESSION: No acute intracranial hemorrhage or definite focal ischemia by CT. Electronically Signed: Brandon Cooley MD at 20:13 EDT , ADDENDUM: 05/09/232020 IMPRESSION: No acute intracranial hemorrhage or definite focal ischemia by CT. N.B. : The above Results were Read Back by Brandon Cooley MD to Devyn Hawkins MD, and understanding confirmed on 05/09/2023 20:14:52 (ET). Electronically Signed: Brandon Cooley MD at 20:13 EDT , Head/Neck CTA 05/09/23 19:59 IMPRESSION: undefined ADDENDUM: 05/09/232043 IMPRESSION: undefined Chest X-Ray 05/09/23 20:37 IMPRESSION: Clear lungs. Linear density as above as well as some densities projecting over the right axillary region. These are of unclear significance. Consider lateral view if patient able. Electronically Signed: Brandon Cooley MD at 20:50 EDT , Echocardiogram 05/09/23 22:24 Interpretation Summary Normal left ventricle. Left ventricular systolic function is normal. The estimated ejection fraction is 55 %. Bubble contrast study negative for right to left interatrial shunt. There is mild to moderate mitral annular calcification. Ordering Physician: Claude Jones Performed By: Sukumar Mccormack RCS Brain MRI 05/10/23 09:00 IMPRESSION: No acute intracranial abnormality. Mild chronic microvascular changes. Electronically Signed: Cesar Tenorio MD at 10:53 EDT Reading Location ID and State: [address] [place] [address] Tel , Service support , D/C Instructions Discharge Diet: No restrictions Meaningful Use Info Meaningful Use Diagnoses (Choose all that apply): None applicable Discharge Plan Admission Admit Date/Time: 05/09/23 21:16 Primary Reason for Your Visit: Difficulty deciphering words and computer screen. Attending Provider: Shiv Kim Primary Care Provider: Isaias Nicole Consulting Providers: Claude Jones Instructions Additional Instructions / Restrictions: Your work-up here was unremarkable. The concern is that this event may have been related with a transient ischemic attack (TIA, also known as mini stroke). Is concerned this could have been a TIA but it certainly could be something else such as an atypical migraine or less likely a stroke. Continue taking aspirin and follow-up with neurology. If you do have recurrent symptoms, notify your physician or return to the emergency room. Discharge Orders/Prescriptions Prescriptions: New aspirin 81 mg Tablet,Chewable 81 mg PO BREAKFAST Qty: 0 0RF Continued propranolol 20 MG tablet 20 mg PO BID PRN PRN (Reason: temor) Referrals / Follow Up: [facility] [Provider Group] - Within 1 Month Isaias Nicole MD [Primary Care Provider] - Within 2 Weeks Disposition Disposition (needs filled in before D/C Order can be placed): Home, Self Care Charges/Coding Visit Charges Inpatient E&M: 93123 Disch Hosp >30min
[2023-05-10 16:40] VITALS: BP 103/56; PULSE 54; RESP 16; TEMP 36.4; O2SAT 98
== END 2023-05-10 16:43 | disposition home or self-care (01) ==
LOC: ED 20:28 → PCU 21:25
PROVIDERS: Admitting Provider Hospitalist; Emergency Provider Emergency Medicine; PCP Family Medicine
DX: R47.01 Aphasia (principal); R41.0 Disorientation, unspecified; R00.1 Bradycardia, unspecified; R47.9 Unspecified speech disturbances; I45.10 Unspecified right bundle-branch block; R11.0 Nausea; G25.0 Essential tremor; F98.8 Other specified behavioral and emotional disorders with onset usually occurring in childhood and adolescence; Z79.899 Other long term (current) drug therapy; R29.90 Unspecified symptoms and signs involving the nervous system; R42 Dizziness and giddiness; R94.31 Abnormal electrocardiogram [ECG] [EKG]; I08.1 Rheumatic disorders of both mitral and tricuspid valves
CPT/HCPCS: 36415; 70450; 70496; 70498; 70551; 71045; 80048; 80061; 82962; 84484; 85025; 85610; 85730; 93005; 93306; 94762; 95819; 99221; 99285; Q9957; Q9967; A4216; G0378

== ENCOUNTER 2023-12-22 18:27 | Emergency (ER) | payer OTHER, SELFPAY ==
[2023-12-22 18:29] VITALS: BP 121/80; PULSE 46; RESP 18; TEMP 36.8; O2SAT 99; BMI 25.2
--- NOTE | 2023-12-22 19:00 | RAD_ITS ---
STUDY: X-RAY - LEFT FEMUR REASON FOR STUDY: Male, 68 years old. Injury TECHNIQUE: Frontal and lateral view(s) of the femur. COMPARISON: None. FINDINGS: Normal visualized femur. There is no acute fracture. Normal visualized soft tissue structure. RAD/Femur Min 2 Views IMPRESSION: Normal x-ray examination of the femur. Electronically Signed: Burt Britt MD at 19:36 EDT ,
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
== END 2023-12-22 20:07 | disposition home or self-care (01) ==
PROVIDERS: Emergency Provider Emergency Medicine; PCP Family Medicine; Visit Provider Emergency Medicine
DX: S70.12XA Contusion of left thigh, initial encounter (principal); S50.312A Abrasion of left elbow, initial encounter; V13.4XXA Pedal cycle driver injured in collision with car, pick-up truck or van in traffic accident, initial encounter; Y92.410 Unspecified street and highway as the place of occurrence of the external cause
CPT/HCPCS: 73552; 99282

== ENCOUNTER → 2025-03-16 | Outpatient (CLI) | payer OTHER, SELFPAY ==
[2025-03-16 18:00] LABS: Hematocrit 43.2 % (40-54); Hemoglobin 14.1 g/dL (13.0-16.5); Immature Granulocytes Count 0.020 X10^3/uL (0.0-0.0); Mean Corp Hgb Conc 32.6 g/dL (32-36); Mean Corpuscular Volume 96.2 fL (80-94); Mean Platelet Vol. 10.3 fl (6.2-12.0); NRBC Flagged by Analyzer 0 % (0-5); Platelet Count 309 K/mm3 (150-450); RBC Distribution Width CV 12.9 % (11.6-14.6); RBC Distribution Width SD 46.1 fl (35.1-43.9); Red Blood Count 4.49 M/mm3 (4.6-6.2); White Blood Count 5.7 K/mm3 (4.4-11.0)
[2025-03-16 18:41] LABS: AST(SGOT) 30 U/L (<=37); Alanine Aminotransfer ALT/SGPT 25 U/L (<=46); Albumin, Serum 4.2 g/dL (3.4-4.8); Alkaline Phosphatase 73 U/L (40-129); Anion Gap 10 (5-15); BUN 15 mg/dL (4-19); BUN/Creat Ratio 17.1 RATIO (10-20); Bilirubin, Direct 0.41 mg/dL (0.00-0.30); Calcium,Total 9.3 mg/dL (7.6-11.0); Carbon Dioxide 26.8 mmol/L (21.0-32.0); Chloride 104 mmol/L (98-108); Globulin 2.1 g/dL (2.2-4.2); Glucose 89 mg/dL (70-99); Potassium 4.5 mmol/L (3.3-5.1)
== END | disposition home or self-care (01) ==
LOC: MTLAB 15:30
PROVIDERS: PCP Family Medicine; Referring Provider Family Medicine; Visit Provider Family Medicine
DX: G25.0 Essential tremor (principal); E80.6 Other disorders of bilirubin metabolism
CPT/HCPCS: 36415; 80048; 80076; 84443; 85025